=== PATIENT | male | born 1990 | race Caucasian/White ===

== ENCOUNTER 2018-12-20 02:02 | Emergency (ER) | payer SELFPAY ==
[~2018-12-20] VITALS: Ht 170.2 cm; Wt 76.1 kg
[2018-12-20 02:07] VITALS: Ht 170.2 cm; Wt 76.1 kg
[2018-12-20] MEDS ORDERED: CEFAZOLIN 1 GM INJ IM ONE (03:30)
[2018-12-20] MEDS ORDERED: HYDROCODONE/APAP (10/325) TAB PO ONE (03:30)
[2018-12-20] MEDS ORDERED: DIPHTH/TET/ACEL PERTUSS (ADULT) 0.5 ML VIAL IM* ONE (03:30)
[2018-12-20] MEDS ORDERED: AMOX1TAB10 PO (05:47)
[2018-12-20] MEDS ORDERED: TRAM50TA2 PO (05:47)
[2018-12-20 05:52] VITALS: BP 119/75; PULSE 89; RESP 16
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
== END 2018-12-20 05:54 | disposition home or self-care (01) ==
LOC: E/R 02:02
DX: S69.92XA Unspecified injury of left wrist, hand and finger(s), initial encounter (principal); Y04.0XXA Assault by unarmed brawl or fight, initial encounter; Z23 Encounter for immunization
CPT/HCPCS: 73110; 73130; 90471; 90715; 96372; 99284; J0690